=== PATIENT | male | born 1950 | race Caucasian/White ===

== ENCOUNTER 2016-09-11 14:13 | Inpatient (IN) | payer MEDICARE, OTHER ==
[~2016-09-11] VITALS: Ht 162.6 cm; Wt 61.2 kg
[2016-09-11 14:56] LABS: BASOPHILS % (AUTO) 0.8 % (0.0-2.0); DIFF TOTAL % 100 %; EOSINOPHILS # (AUTO) 0.1 /CMM (0.0-0.7); EOSINOPHILS % (AUTO) 2.1 % (0.0-6.0); HEMATOCRIT 29 % (39-51); HEMOGLOBIN 9.6 g/dL (13.5-17.5); LYMPHOCYTES # (AUTO) 2.1 /CMM (0.8-4.8); LYMPHOCYTES % (AUTO) 34.5 % (20.0-44.0); MEAN CORPUSCULAR HEMOGLOBIN 36 PG (26.0-33.0); MEAN CORPUSCULAR HGB CONC 33 g/dl (31.0-36.0); MEAN CORPUSCULAR VOLUME 106 fL (80-96); MONOCYTES # (AUTO) 0.6 /CMM (0.1-1.30); MONOCYTES % (AUTO) 9.5 % (2.0-12.0); NEUTROPHILS # (AUTO) 3.3 /CMM (1.8-8.9); NEUTROPHILS % (AUTO) 53.1 % (43.0-81.0); PLATELET COUNT (AUTO) 95 /CMM (150-450); WHITE BLOOD COUNT (AUTO) 6.1 K/uL (4.3-11.0)
[2016-09-11] MEDS ORDERED: VANCOMYCIN 1 GM in IV D5W 250 ML IV ONE (15:00)
[2016-09-11 15:09] LABS: INR 1.44 (0.87-1.13); PROTHROMBIN TIME 15.1 SECS (9.5-12.7)
[2016-09-11 15:18] LABS: ALANINE AMINOTRANSFERASE 42 U/L (12-78); ALBUMIN 1.8 g/dL (3.4-5.0); ANION GAP 9 (5-14); ASPARTATE AMINOTRANSFERASE 92 U/L (15-37); BILIRUBIN,DIRECT 0.7 mg/dL (0.0-0.2); CALCIUM, SERUM 7.7 mg/dL (8.5-10.1); CARBON DIOXIDE 26 mmol/L (21-32); CHLORIDE 104 mmol/L (98-107); GFR 75 mL/min (>60); GLUCOSE 110 mg/dL (74-106); INDIRECT BILIRUBIN 0.3 mg/dL (0.0-1.1); POTASSIUM 4.2 mmol/L (3.5-5.1); SODIUM SERUM 135 mmol/L (136-145); UREA NITROGEN, BLOOD 21 mg/dL (7-18)
[2016-09-11 15:25] LABS: TROPONIN I < 0.017 ng/mL (0.00-0.056)
[2016-09-11 15:26] LABS: LACTIC ACID 1.3 mmol/L (0.4-2.0)
[2016-09-11] MEDS ORDERED: FUROSEMIDE 20 MG/2 ML VIAL IV ONE (16:30)
[2016-09-11] MEDS ORDERED: FUROSEMIDE 20 MG/2 ML VIAL ONE (16:39)
[2016-09-11] MEDS ORDERED: DOCU-25 PO (17:01)
[2016-09-11] MEDS ORDERED: HYDR-551 PO (17:01)
[2016-09-11] MEDS ORDERED: MULT-70 PO (17:01)
[2016-09-11] MEDS ORDERED: LEVO100T9 PO (17:01)
[2016-09-11] MEDS ORDERED: FERR-58 PO (17:01)
[2016-09-11] MEDS ORDERED: CALC-108 PO (17:01)
[2016-09-11] MEDS ORDERED: CYAN10009 PO (17:01)
[2016-09-11] MEDS ORDERED: OXYC5TAB3 PO (17:01)
[2016-09-11] MEDS ORDERED: AMIN30LI2 PO (17:01)
[2016-09-11] MEDS ORDERED: FURO-145 PO (17:01)
[2016-09-11] MEDS ORDERED: ARIP30TA PO (17:01)
[2016-09-11] MEDS ORDERED: LEVO75TA7 PO (17:01)
[2016-09-11] MEDS ORDERED: ACET-868 PO (17:01)
[2016-09-11] MEDS ORDERED: FOLI1TAB16 PO (17:01)
[2016-09-11] MEDS ORDERED: ZOLPIDEM TARTRATE 5 MG TABLET PO PRN (18:00)
[2016-09-11] MEDS ORDERED: MAGNESIUM HYDROXIDE 30 ML UDC PO PRN (18:00)
[2016-09-11] MEDS ORDERED: ACETAMINOPHEN 325 MG TABLET PO PRN (18:00)
[2016-09-11] MEDS ORDERED: VANCOMYCIN 1 GM in IV D5W 250 ML IV SCH (18:00)
[2016-09-11] MEDS ORDERED: MAG HYDROX/AL HYDROX/SIMETH 30 ML UDC PO PRN (18:00)
[2016-09-11] MEDS ORDERED: ONDANSETRON HCL/PF 4 MG/2 ML VIAL IVP PRN (18:00)
[2016-09-11] MEDS ORDERED: Z GUARD REMEDY 2 OZ OINT TP PRN (18:00)
[2016-09-11] MEDS ORDERED: HYDROCODONE/APAP 5/325MG 1 EACH TABLET PO PRN (18:00)
[2016-09-11] MEDS ORDERED: FEE PK DOSING 1 MIN EA MC ONE (18:51)
[2016-09-11] MEDS: PROSOURCE / PROSTAT (PYXIS) 30 ML UDC PO SCH (19:00)
[2016-09-11 20:00] VITALS: BP_SYST 127; BP_SYST 165; BP_DIAS 65; BP_DIAS 86
[2016-09-11] MEDS: CYANOCOBALAMIN 500 MCG TABLET PO SCH (20:08)
[2016-09-11] MEDS: oxyCODONE IR immediate release 5 MG CAPSULE PO PRN (20:19)
[2016-09-11] MEDS ORDERED: IV SET PRIMARY PUMP SET 1 EA INFUS.SET MC ONE (21:22)
[2016-09-11] MEDS ORDERED: IV NS 0.9% 250 ML IV ONE (21:22)
[2016-09-11] MEDS ORDERED: SECONDARY IV SET 1 EA INFUS.SET MC ONE (21:23)
[2016-09-12] MEDS ORDERED: LORAZEPAM INJ 2 MG/ML VIAL IV PRN
[2016-09-12] MEDS: oxyCODONE IR immediate release 5 MG CAPSULE PO PRN ×5 (00:52→22:35)
[2016-09-12] MEDS: VANCOMYCIN 1 GM in IV D5W 250 ML IV SCH ×2 (03:11→15:39)
[2016-09-12] MEDS ORDERED: VANCOMYCIN 1.25 GM in IV D5W 500 ML IV SCH (05:00)
[2016-09-12 08:00] VITALS: BP 128/80
[2016-09-12] MEDS: ARIPIPRAZOLE 5 MG TABLET PO SCH (08:05)
[2016-09-12] MEDS: FERROUS SULFATE (325 MG) 325 MG/TAB TABLET PO SCH (08:05)
[2016-09-12] MEDS: CALCIUM CARB 250MG /VITAMIN D 1 UDTAB PO SCH (08:05)
[2016-09-12] MEDS: DOCUSATE SODIUM 100 MG CAPSULE PO SCH (08:05)
[2016-09-12] MEDS: MULTIVITAMINS,THERAPEUTIC 1 UDTAB TABLET PO SCH (08:05)
[2016-09-12] MEDS: PROSOURCE / PROSTAT (PYXIS) 30 ML UDC PO SCH (08:06)
[2016-09-12] MEDS: FUROSEMIDE 20 MG TABLET PO SCH (08:06)
[2016-09-12] MEDS: LEVOTHYROXINE SODIUM 100 MCG TABLET PO SCH (08:06)
[2016-09-12] MEDS: CYANOCOBALAMIN 500 MCG TABLET PO SCH (08:06)
[2016-09-12] MEDS: PANTOPRAZOLE 40 MG TABLET.DR PO SCH (08:06)
[2016-09-12] MEDS: FOLIC ACID 1 MG TABLET PO SCH (08:06)
[2016-09-12 08:11] VITALS: BP 128/80
[2016-09-12 08:37] LABS: CALCIUM, SERUM 7.7 mg/dL (8.5-10.1); PHOSPHORUS 2.9 mg/dL (2.5-4.9); POTASSIUM 4.5 mmol/L (3.5-5.1)
[2016-09-12 09:24] LABS: BASOPHILS % (AUTO) 0.4 % (0.0-2.0); DIFF TOTAL % 100 %; EOSINOPHILS # (AUTO) 0.2 /CMM (0.0-0.7); EOSINOPHILS % (AUTO) 4.3 % (0.0-6.0); HEMATOCRIT 30 % (39-51); LYMPHOCYTES # (AUTO) 1.8 /CMM (0.8-4.8); LYMPHOCYTES % (AUTO) 41.9 % (20.0-44.0); MEAN CORPUSCULAR HEMOGLOBIN 37 PG (26.0-33.0); MEAN CORPUSCULAR HGB CONC 34 g/dl (31.0-36.0); MEAN CORPUSCULAR VOLUME 108 fL (80-96); MONOCYTES # (AUTO) 0.6 /CMM (0.1-1.30); MONOCYTES % (AUTO) 13.8 % (2.0-12.0); NEUTROPHILS # (AUTO) 1.7 /CMM (1.8-8.9); NEUTROPHILS % (AUTO) 39.6 % (43.0-81.0); PLATELET COUNT (AUTO) 98 /CMM (150-450); RED BLOOD CELL COUNT(AUTO) 2.73 MIL/uL (4.5-6.0); WHITE BLOOD COUNT (AUTO) 4.4 K/uL (4.3-11.0)
[2016-09-12 10:30] LABS: ADD UA MICROSCOPIC NO; KETONES,URINE NEGATIVE (NEGATIVE); LEUKOCYTE ESTERASE ,URINE NEGATIVE (NEGATIVE); PH,URINE 7.5 (5.0-8.0)
[2016-09-12] MEDS ORDERED: IV SET PRIMARY PUMP SET 1 EA INFUS.SET MC ONE (10:50)
[2016-09-12] MEDS ORDERED: SECONDARY IV SET 1 EA INFUS.SET MC ONE (10:56)
[2016-09-12] MEDS: Magnesium 1GM/D5W 100ML PREMIX 100 ML IV SCH ×2 (10:58→11:55)
[2016-09-12 16:00] VITALS: BP 118/79
[2016-09-12] MEDS: NEOMY SULF/BACITRAC ZN/POLY 15 GM TUBE TP SCH (18:48)
[2016-09-12 20:00] VITALS: BP 116/69
[2016-09-13] MEDS: VANCOMYCIN 1 GM in IV D5W 250 ML IV SCH ×2 (04:16→17:14)
[2016-09-13 07:36] LABS: CALCIUM, SERUM 7.7 mg/dL (8.5-10.1); CREATININE 1.1 mg/dL (0.6-1.3); POTASSIUM 4.3 mmol/L (3.5-5.1)
[2016-09-13 08:00] VITALS: BP 118/70
[2016-09-13] MEDS: oxyCODONE IR immediate release 5 MG CAPSULE PO PRN ×2 (08:32→20:19)
[2016-09-13] MEDS: PANTOPRAZOLE 40 MG TABLET.DR PO SCH (08:32)
[2016-09-13] MEDS: LEVOTHYROXINE SODIUM 100 MCG TABLET PO SCH (08:33)
[2016-09-13] MEDS: MULTIVITAMINS,THERAPEUTIC 1 UDTAB TABLET PO SCH (08:52)
[2016-09-13] MEDS: CYANOCOBALAMIN 500 MCG TABLET PO SCH (08:52)
[2016-09-13] MEDS: FOLIC ACID 1 MG TABLET PO SCH (08:52)
[2016-09-13] MEDS: ARIPIPRAZOLE 5 MG TABLET PO SCH (08:52)
[2016-09-13] MEDS: DOCUSATE SODIUM 100 MG CAPSULE PO SCH (08:53)
[2016-09-13] MEDS: CALCIUM CARB 250MG /VITAMIN D 1 UDTAB PO SCH (08:53)
[2016-09-13] MEDS: FERROUS SULFATE (325 MG) 325 MG/TAB TABLET PO SCH (08:53)
[2016-09-13] MEDS: FUROSEMIDE 20 MG TABLET PO SCH (08:53)
[2016-09-13] MEDS: PROSOURCE / PROSTAT (PYXIS) 30 ML UDC PO SCH (08:53)
[2016-09-13] MEDS: NEOMY SULF/BACITRAC ZN/POLY 15 GM TUBE TP SCH (08:55)
[2016-09-13] MEDS: Magnesium 1GM/D5W 100ML PREMIX 100 ML IV SCH ×2 (11:29→12:55)
[2016-09-13 16:00] VITALS: BP 115/66
[2016-09-13 20:00] VITALS: BP 108/67
[2016-09-14] MEDS: oxyCODONE IR immediate release 5 MG CAPSULE PO PRN ×3 (00:40→14:44)
[2016-09-14] MEDS: VANCOMYCIN 1 GM in IV D5W 250 ML IV SCH ×2 (04:29→16:38)
[2016-09-14 07:25] LABS: CALCIUM, SERUM 7.8 mg/dL (8.5-10.1); CREATININE 1.1 mg/dL (0.6-1.3); POTASSIUM 4.1 mmol/L (3.5-5.1)
[2016-09-14 08:00] VITALS: BP 111/70
[2016-09-14] MEDS: PROSOURCE / PROSTAT (PYXIS) 30 ML UDC PO SCH (08:35)
[2016-09-14] MEDS: LEVOTHYROXINE SODIUM 100 MCG TABLET PO SCH (08:35)
[2016-09-14] MEDS: FUROSEMIDE 20 MG TABLET PO SCH (08:35)
[2016-09-14] MEDS: FOLIC ACID 1 MG TABLET PO SCH (08:35)
[2016-09-14] MEDS: DOCUSATE SODIUM 100 MG CAPSULE PO SCH (08:35)
[2016-09-14] MEDS: PANTOPRAZOLE 40 MG TABLET.DR PO SCH (08:36)
[2016-09-14] MEDS: ARIPIPRAZOLE 5 MG TABLET PO SCH (08:36)
[2016-09-14] MEDS: CALCIUM CARB 250MG /VITAMIN D 1 UDTAB PO SCH (08:36)
[2016-09-14] MEDS: FERROUS SULFATE (325 MG) 325 MG/TAB TABLET PO SCH (08:36)
[2016-09-14] MEDS: CYANOCOBALAMIN 500 MCG TABLET PO SCH (08:36)
[2016-09-14] MEDS: MULTIVITAMINS,THERAPEUTIC 1 UDTAB TABLET PO SCH (08:37)
[2016-09-14] MEDS: NEOMY SULF/BACITRAC ZN/POLY 15 GM TUBE TP SCH (08:38)
[2016-09-14] MEDS ORDERED: SECONDARY IV SET 1 EA INFUS.SET MC ONE (10:42)
[2016-09-14] MEDS: Magnesium 1GM/D5W 100ML PREMIX 100 ML IV SCH ×2 (10:46→12:04)
[2016-09-14] MEDS ORDERED: IV SET PRIMARY PUMP SET 1 EA INFUS.SET MC ONE (10:50)
[2016-09-14] MEDS ORDERED: IV NS 0.9% 250 ML IV ONE (10:50)
[2016-09-14] MEDS ORDERED: CLIN300C97 PO (16:20)
== END 2016-09-14 18:12 | DRG 602 ==
LOC: ER 14:15 → MED 16:58
PROVIDERS: ADMIT Internal Medicine; ATTEND Internal Medicine
DX: L03.116 Cellulitis of left lower limb (principal); E43 Unspecified severe protein-calorie malnutrition; D68.4 Acquired coagulation factor deficiency; D69.59 Other secondary thrombocytopenia; G62.9 Polyneuropathy, unspecified; E83.51 Hypocalcemia; K70.10 Alcoholic hepatitis without ascites; B35.3 Tinea pedis; L03.115 Cellulitis of right lower limb; B19.20 Unspecified viral hepatitis C without hepatic coma; K21.9 Gastro-esophageal reflux disease without esophagitis; D53.9 Nutritional anemia, unspecified; E03.9 Hypothyroidism, unspecified; F10.20 Alcohol dependence, uncomplicated; F17.210 Nicotine dependence, cigarettes, uncomplicated; M19.90 Unspecified osteoarthritis, unspecified site; Z91.19 Patient's noncompliance with other medical treatment and regimen; F31.9 Bipolar disorder, unspecified; I10 Essential (primary) hypertension; K29.70 Gastritis, unspecified, without bleeding; E78.5 Hyperlipidemia, unspecified; S81.802A Unspecified open wound, left lower leg, initial encounter; X58.XXXA Exposure to other specified factors, initial encounter; Y93.9 Activity, unspecified; Y92.009 Unspecified place in unspecified non-institutional (private) residence as the place of occurrence of the external cause; Z68.23 Body mass index [BMI] 23.0-23.9, adult
CPT/HCPCS: 36415; 71010-TC; 80048-TC; 80061-TC; 80076-TC; 80202-TC; 81000-TC; 83605-TC; 83735-TC; 83880; 84100-TC; 84484-TC; 85025-TC; 85730-TC; 87040-TC; 87081-TC; 93970-TC; 97001-TC; A4606; A6402; A6403; J1940; J3370; J3475; J7050; J7060; Z7610

== ENCOUNTER 2017-11-27 12:25 | Emergency (ER) | payer MEDICARE, MEDICAID ==
[~2017-11-27] VITALS: Ht 157.5 cm; Wt 63.5 kg
[~2017-11-27 12:25] MED LIST: ACET-868 PO; AMIN30LI2 PO; ARIP30TA3 PO; CALC-261 PO; CLIN300C11 PO; CYAN10009 PO; DOCU-141 PO; FERR325T24 PO; FOLI1TAB16 PO; FURO-145 PO; HYDR-551 PO; LEVO100T9 PO; MULT-594 PO; OXYC5TAB3 PO
[2017-11-27 12:30] VITALS: BP 147/90
== END 2017-11-27 13:01 | disposition home or self-care (01) ==
LOC: ER 12:26
DX: M54.12 Radiculopathy, cervical region (principal); E03.9 Hypothyroidism, unspecified; F31.9 Bipolar disorder, unspecified; Z85.05 Personal history of malignant neoplasm of liver
CPT/HCPCS: A4606; Z7502; Z7610